=== PATIENT | female | born 1940 | race Caucasian/White ===

== ENCOUNTER → 2017-04-30 | Outpatient (CLI) | payer OTHER ==
[~2017-04-30] VITALS: Ht 170.2 cm; Wt 83.9 kg
[~2017-04-30] MED LIST: ACIDOPHILUS1 EAC5 PO; ALEVE220 M1 PO; AZASITE; CALCIUM CITRAT1 EAC7; CALCIUM OYSTER500 MG PO; CHOLESTEROL1 GM MC; CLONAZEPAM 0.50.5 M1 PO; CYCLOBENZAPRINE10 MG PO; DESYREL50 MG PO; DIPHENOXYLATE/A1 TA1 PO; ENDOCET 7.5-321 EACH PO; GLUCOSA-CHOND-1 EACH PO; HYDROCODON-ACE1 EACH PO; IBUPROFEN 800800 M1 PO; LEVOTHYROXIN0.112 M1 PO; LITHIUM CARBON300 M3 PO; LUTEIN6 MG PO; MOBIC15 MG PO; MOBIC7.5 MG PO; MOVE FREE; MULTI VITAMIN1 EACH PO; NABUMETONE 750750 M1 PO; NORCO 7.5-3251 EACH PO; OMEGA-3 FISH1000 MG PO; ONE-A-DAY WOMENS PO; OXYCODONE-APAP1 EAC6 PO; PRESERVISION A1 EAC2 PO; PREVALITE PACKE1 PKT; TRAMADOL 50 MG50 MG PO; VITAMIN D1000 UNI1 PO; [UNRECOGNIZED DRUG - OTHER]; [UNRECOGNIZED DRUG - OTHER]
[2017-04-30 13:29] VITALS: BP 134/79
== END ==
LOC: SEN 08:52
DX: F31.9 Bipolar disorder, unspecified (principal); R53.83 Other fatigue

== ENCOUNTER → 2017-07-29 | Outpatient (CLI) | payer OTHER ==
[2017-07-29 13:16] VITALS: BP 152/82
[2017-07-29 14:24] LABS: ABSOLUTE NEUTROPHILS 3.9 thou/uL (1.4-8.2); BASOPHILS 0.1 % (0.0-2.0); HEMATOCRIT 39.6 % (37.0-47.0); HEMOGLOBIN 13.2 gm/dL (12.0-15.0); MCH 29.5 pg (26.0-34.0); MCHC 33.4 g/dL (28.0-37.0); MCV 88.5 fL (80.0-100.0); MONOCYTES 7.9 % (1.0-8.0); PLATELET COUNT 167 thou/uL (150-400); RBC 4.47 mil/uL (4.20-5.00); RDW 13.4 % (10.5-14.5); WBC 5.8 thou/uL (4.0-11.0)
[2017-07-29 15:42] LABS: ALBUMIN 3.8 g/dL (3.4-5.0); CALCIUM 9.8 mg/dL (8.5-10.1); CREATININE 1.1 mg/dL (0.6-1.0); MAGNESIUM 1.7 mg/dL (1.8-2.4); POTASSIUM 4.4 mmol/L (3.5-5.1); TOTAL BILIRUBIN 0.5 mg/dL (<0.1-1.0); TOTAL PROTEIN 7.4 g/dL (6.4-8.2)
== END ==
LOC: SEN 07:50
PROVIDERS: Nurse Practitioner Family
DX: F31.9 Bipolar disorder, unspecified (principal); M79.642 Pain in left hand; K58.8 Other irritable bowel syndrome; B35.1 Tinea unguium

== ENCOUNTER → 2020-10-23 | Outpatient (CLI) | payer OTHER | LOC: NUC 13:24 | PROVIDERS: ATTEND Family Medicine | DX: Z78.0 Asymptomatic menopausal state (principal); M51.36 Other intervertebral disc degeneration, lumbar region ==

== ENCOUNTER → 2020-11-28 | Outpatient (CLI) | payer OTHER | LOC: RAD 15:43 | PROVIDERS: ATTEND Nurse Practitioner | DX: S09.90XA Unspecified injury of head, initial encounter (principal); M47.814 Spondylosis without myelopathy or radiculopathy, thoracic region; M16.0 Bilateral primary osteoarthritis of hip; M47.817 Spondylosis without myelopathy or radiculopathy, lumbosacral region; M43.17 Spondylolisthesis, lumbosacral region; M41.84 Other forms of scoliosis, thoracic region; M47.812 Spondylosis without myelopathy or radiculopathy, cervical region; M25.78 Osteophyte, vertebrae; X58.XXXA Exposure to other specified factors, initial encounter; Y93.89 Activity, other specified; Y92.89 Other specified places as the place of occurrence of the external cause; Y99.8 Other external cause status ==

== ENCOUNTER → 2021-03-19 | Outpatient (CLI) | payer OTHER | LOC: SJCVCIMAG 10:42 | PROVIDERS: ATTEND Family Medicine | DX: I70.203 Unspecified atherosclerosis of native arteries of extremities, bilateral legs (principal); M71.22 Synovial cyst of popliteal space [Baker], left knee; M71.21 Synovial cyst of popliteal space [Baker], right knee; M79.604 Pain in right leg; M79.605 Pain in left leg; E11.9 Type 2 diabetes mellitus without complications; E78.5 Hyperlipidemia, unspecified ==

== ENCOUNTER → 2021-03-28 | Outpatient (CLI) | payer BC | LOC: RAD 16:20 | PROVIDERS: ATTEND Nurse Practitioner | DX: M47.817 Spondylosis without myelopathy or radiculopathy, lumbosacral region (principal); M25.78 Osteophyte, vertebrae; M16.0 Bilateral primary osteoarthritis of hip; G89.29 Other chronic pain ==